=== PATIENT | female | born 1945 | race Caucasian/White ===

== ENCOUNTER 2017-09-03 15:41 | Emergency (ER) | payer MEDICARE ==
[~2017-09-03] VITALS: Ht 170.1 cm; Wt 90.7 kg
[2017-09-03 15:42] VITALS: BP 159/74
[2017-09-03 16:14] LABS: BASO # 0.1 10*3/uL (0.0-0.1); BASO % 0.8 % (0.0-1.0); EOS # 0.2 10*3/uL (0.0-0.4); EOS % 2.6 % (1.0-4.0); HEMOGLOBIN 16.7 g/dl (12.0-16.0); LYMPH % 25.7 % (27.0-41.0); MEAN CELL VOLUME 96.5 fl (81.0-99.0); MEAN CORPUSCULAR HGB 32.2 pg (27.0-31.0); MEAN CORPUSCULAR HGB CONC 33.4 g/dl (33.0-37.0); MEAN PLATELET VOLUME 9.4 fl (9.6-12.3); MONO # 0.5 10*3/uL (0.1-1.0); MONO % 6.6 % (3.0-9.0); NEUT % 63.8 % (47.0-73.0); PLATELET COUNT AUTOMATED 171 10*3/uL (130-400); RED BLOOD COUNT 5.18 10*6/uL (4.10-5.10); RED CELL DISTRI WIDTH 13.2 % (0-14.5); WHITE BLOOD COUNT 7.8 10*3/uL (4.8-10.8)
[2017-09-03 16:22] LABS: ACT PARTIAL THROMBO TIME 31.1 SECONDS (20.8-31.5); INTERNATIONAL NORM RATIO 1.1 (2.0-3.5)
[2017-09-03 16:23] LABS: BILIRUBIN NEGATIVE (NEGATIVE); BLOOD TRACE-LYSED (NEGATIVE); CLARITY CLEAR (CLEAR); COLOR YELLOW (YELLOW); GLUCOSE NEGATIVE (NEGATIVE); KETONE NEGATIVE (NEGATIVE); LEUKO ESTERASE NEGATIVE (NEGATIVE); NITRITE NEGATIVE (NEGATIVE); SPECIFIC GRAVITY <= 1.005 (1.005-1.030); UROBILINOGEN 0.2 E.U./dl (0.2-1.0)
[2017-09-03 16:32] LABS: BACTERIA 1+; EPITHELIAL CELLS 0-2; WBC 0-2 wbc/hpf (0-5)
[2017-09-03 16:35] LABS: ALBUMIN 3.8 gm/dl (3.1-4.5); ALKALINE PHOSPHATASE 77 U/L (45-117); BUN 15 mg/dl (7-24); CHLORIDE 105 mmol/L (98-107); CREATININE 0.68 mg/dL (0.55-1.02); LIPASE 250 U/L (73-393); POTASSIUM 4.2 mmol/L (3.5-5.1); SGOT/AST 14 IU/L (3-35); SGPT/ALT 19 U/L (12-78); SODIUM 139 mmol/L (136-145); TOTAL PROTEIN 7.6 gm/dL (6.4-8.2)
[2017-09-03] MEDS ORDERED: PRILOSEC20 M1 PO (17:36)
== END 2017-09-03 17:43 | disposition home or self-care (01) ==
LOC: ED 15:41
PROVIDERS: Emergency Medicine
DX: R10.13 Epigastric pain (principal); R10.12 Left upper quadrant pain; D68.51 Activated protein C resistance; I25.10 Atherosclerotic heart disease of native coronary artery without angina pectoris; I25.2 Old myocardial infarction; Z90.710 Acquired absence of both cervix and uterus; Z98.890 Other specified postprocedural states; Z88.8 Allergy status to other drugs, medicaments and biological substances

== ENCOUNTER 2019-02-09 14:29 | Inpatient (IN) | payer MEDICARE ==
[~2019-02-09] VITALS: Ht 167.6 cm; Wt 96.7 kg
--- NOTE | ~2019-02-09 | EKG ---
[place], [place] ELECTROCARDIOGRAM REPORT NAME: HANSA MUHAMMAD UNIT #: [id number] ROOM: 506 DOCTOR: EPIPHANY DRAFT REPORT BIRTHDATE: [birth year] [facility] Test Date: 2019-02-09 Test Time: 17:21:42 Pat Name: HANSA MUHAMMAD Department: Room: 506 2 Gender: F Shrinker: Oneal Barahona : 1945 Requested By: ADRI GUTIÉRREZ Order Number: [id number] Reading MD: Hermilo Hensley MD Measurements Intervals Jerome Rate: 56 P: 52 AL: 215 QRS: 31 QRSD: 94 T: 58 QT: 429 QTc: 415 Interpretive Statements Sinus rhythm Borderline prolonged AL interval Baseline wander in lead(s) II,III,aVF Electronically Signed On 02-10-2019 14:22:24 PDT by Hermilo Hensley MD CM:EKGRPT:ELECTROCARDIOGRAM REPORT 1721 1422 ADRI GUTIÉRREZ EPIPHANY DRAFT REPORT ADRI GUTIÉRREZ
[~2019-02-09 14:29] MED LIST: PRILOSEC20 M1 PO
[2019-02-09] MEDS ORDERED: LASIX40 MG PO (15:16)
[2019-02-09] MEDS ORDERED: XARE20MG PO (15:17)
[2019-02-09] MEDS ORDERED: GLUCOPHAGE1000 MG PO (15:18)
[2019-02-09] MEDS ORDERED: 'TENORMIN50 MG PO (15:18)
[2019-02-09] MEDS ORDERED: FOLGARD TABLET1 EACH PO (15:19)
[2019-02-09] MEDS ORDERED: LIPITOR40 MG PO (15:21)
[2019-02-09 15:45] LABS: BASO # 0.1 10*3/uL (0.0-0.1); BASO % 1.1 % (0.0-1.0); EOS # 0.2 10*3/uL (0.0-0.4); EOS % 2.7 % (1.0-4.0); HEMATOCRIT 48.2 % (37.0-47.0); LYMPH # 2.1 10*3/uL (1.3-4.4); LYMPH % 27.9 % (27.0-41.0); MEAN CORPUSCULAR HGB 33.2 pg (27.0-31.0); MEAN CORPUSCULAR HGB CONC 33.2 g/dl (33.0-37.0); MEAN PLATELET VOLUME 10.5 fl (9.6-12.3); MONO # 0.5 10*3/uL (0.1-1.0); MONO % 6.9 % (3.0-9.0); NEUT # 4.5 10*3/uL (2.3-7.9); PLATELET COUNT AUTOMATED 164 10*3/uL (130-400); RED BLOOD COUNT 4.82 10*6/uL (4.10-5.10); RED CELL DISTRI WIDTH 13.2 % (0-14.5); WHITE BLOOD COUNT 7.3 10*3/uL (4.8-10.8)
[2019-02-09 15:58] LABS: ALBUMIN 3.5 gm/dl (3.1-4.5); ALKALINE PHOSPHATASE 67 U/L (45-117); BUN 15 mg/dl (7-24); CHLORIDE 109 mmol/L (98-107); CREATININE 0.67 mg/dL (0.55-1.02); PHOSPHOROUS 2.6 mg/dL (2.5-4.9); POTASSIUM 4.6 mmol/L (3.5-5.1); SGOT/AST 13 IU/L (3-35); SGPT/ALT 20 U/L (12-78); SODIUM 142 mmol/L (136-145); TOTAL PROTEIN 7.1 gm/dL (6.4-8.2)
[2019-02-09 16:00] VITALS: BP 133/68; BP 172/94
[2019-02-09 16:08] LABS: TROPONIN I < 0.015 ng/ml (<0.045)
[2019-02-09 20:00] VITALS: BP 122/73
[2019-02-10] VITALS: BP 125/66
[2019-02-10] MEDS ORDERED: OMEPRAZOLE40 MG PO (00:14)
[2019-02-10] MEDS ORDERED: VITAMIN D32000 UNI1 PO (00:15)
[2019-02-10 06:59] LABS: BILIRUBIN NEGATIVE (NEGATIVE); BLOOD NEGATIVE (NEGATIVE); CLARITY CLEAR (CLEAR); COLOR YELLOW (YELLOW); GLUCOSE NEGATIVE (NEGATIVE); KETONE NEGATIVE (NEGATIVE); LEUKO ESTERASE NEGATIVE (NEGATIVE); NITRITE NEGATIVE (NEGATIVE); SPECIFIC GRAVITY 1.015 (1.005-1.030); UROBILINOGEN 0.2 E.U./dl (0.2-1.0)
[2019-02-10 07:17] LABS: BASO # 0.1 10*3/uL (0.0-0.1); BASO % 1.3 % (0.0-1.0); EOS # 0.3 10*3/uL (0.0-0.4); EOS % 4.2 % (1.0-4.0); HEMATOCRIT 50.3 % (37.0-47.0); HEMOGLOBIN 16.3 g/dl (12.0-16.0); LYMPH # 2.4 10*3/uL (1.3-4.4); LYMPH % 33.6 % (27.0-41.0); MEAN CELL VOLUME 100.8 fl (81.0-99.0); MEAN CORPUSCULAR HGB 32.7 pg (27.0-31.0); MEAN CORPUSCULAR HGB CONC 32.4 g/dl (33.0-37.0); MEAN PLATELET VOLUME 10.1 fl (9.6-12.3); MONO # 0.6 10*3/uL (0.1-1.0); NEUT # 3.7 10*3/uL (2.3-7.9); NEUT % 52.2 % (47.0-73.0); PLATELET COUNT AUTOMATED 166 10*3/uL (130-400); RED BLOOD COUNT 4.99 10*6/uL (4.10-5.10); RED CELL DISTRI WIDTH 13.5 % (0-14.5); WHITE BLOOD COUNT 7.1 10*3/uL (4.8-10.8)
[2019-02-10 07:35] LABS: ALBUMIN 3.5 gm/dl (3.1-4.5); ALKALINE PHOSPHATASE 63 U/L (45-117); BUN 19 mg/dl (7-24); CHLORIDE 107 mmol/L (98-107); CHOLESTEROL 151 mg/dL (<200); CREATININE 0.86 mg/dL (0.55-1.02); FREE T4 0.92 ng/dl (0.76-1.46); HDL CHOLESTEROL 33 mg/dl (40-60); LDL CHOLESTEROL 73 mg/dL (9-159); PHOSPHOROUS 3.3 mg/dL (2.5-4.9); POTASSIUM 3.9 mmol/L (3.5-5.1); SGOT/AST 14 IU/L (3-35); SGPT/ALT 22 U/L (12-78); SODIUM 141 mmol/L (136-145); TOTAL PROTEIN 7.2 gm/dL (6.4-8.2); TRIGLYCERIDES 226 mg/dl (<150); VLDL CHOLESTEROL 45 mg/dL (6-40)
[2019-02-10 08:00] VITALS: BP 126/65; BP 126/70
[2019-02-10 12:00] VITALS: BP 95/55
[2019-02-10 16:00] VITALS: BP 110/63
[2019-02-10 20:00] VITALS: BP 115/63
[2019-02-10 21:40] VITALS: BP 110/62
[2019-02-11] VITALS: BP 103/52
[2019-02-11 07:34] LABS: BASO # 0.1 10*3/uL (0.0-0.1); BASO % 1.1 % (0.0-1.0); EOS # 0.3 10*3/uL (0.0-0.4); EOS % 3.5 % (1.0-4.0); HEMATOCRIT 50.1 % (37.0-47.0); HEMOGLOBIN 16.3 g/dl (12.0-16.0); LYMPH % 37.3 % (27.0-41.0); MEAN CELL VOLUME 99.4 fl (81.0-99.0); MEAN CORPUSCULAR HGB 32.3 pg (27.0-31.0); MEAN CORPUSCULAR HGB CONC 32.5 g/dl (33.0-37.0); MEAN PLATELET VOLUME 10.5 fl (9.6-12.3); MONO # 0.6 10*3/uL (0.1-1.0); MONO % 7.4 % (3.0-9.0); NEUT % 50.1 % (47.0-73.0); PLATELET COUNT AUTOMATED 176 10*3/uL (130-400); RED BLOOD COUNT 5.04 10*6/uL (4.10-5.10); RED CELL DISTRI WIDTH 13.2 % (0-14.5)
[2019-02-11 08:07] LABS: BUN 18 mg/dl (7-24); CHLORIDE 108 mmol/L (98-107); CREATININE 0.84 mg/dL (0.55-1.02); SODIUM 141 mmol/L (136-145)
[2019-02-11 08:30] VITALS: BP 106/68
[2019-02-11 09:44] VITALS: BP 110/64
[2019-02-11 12:00] VITALS: BP 117/73
[2019-02-11 16:00] VITALS: BP 108/60
[2019-02-11 20:00] VITALS: BP 106/50
[2019-02-12] VITALS: BP 116/65
[2019-02-12 12:00] VITALS: BP 106/45
[2019-02-12] MEDS ORDERED: KEFLEX500 M1 PO (13:40)
== END 2019-02-12 15:55 | disposition home or self-care (01) | DRG 603 ==
LOC: 5E 14:29
PROVIDERS: Internal Medicine; ADMIT Internal Medicine
DX: L03.115 Cellulitis of right lower limb (principal); D68.51 Activated protein C resistance; I25.10 Atherosclerotic heart disease of native coronary artery without angina pectoris; I11.0 Hypertensive heart disease with heart failure; M79.2 Neuralgia and neuritis, unspecified; I50.9 Heart failure, unspecified; D75.89 Other specified diseases of blood and blood-forming organs; F17.210 Nicotine dependence, cigarettes, uncomplicated; K21.9 Gastro-esophageal reflux disease without esophagitis; M79.7 Fibromyalgia; E11.628 Type 2 diabetes mellitus with other skin complications; I25.2 Old myocardial infarction; Z88.8 Allergy status to other drugs, medicaments and biological substances; Z71.6 Tobacco abuse counseling; Z79.4 Long term (current) use of insulin; Z79.899 Other long term (current) drug therapy

== ENCOUNTER 2019-10-19 20:53 | Emergency (ER) | payer MEDICARE ==
[~2019-10-19] VITALS: Ht 167.6 cm; Wt 99.8 kg
[~2019-10-19 20:53] MED LIST changes: +'TENORMIN50 MG PO; +FOLGARD TABLET1 EACH PO; +GLUCOPHAGE1000 MG PO; +KEFLEX500 M1 PO; +LASIX40 MG PO; +LIPITOR40 MG PO; +OMEPRAZOLE40 MG PO; +VITAMIN D32000 UNI1 PO; +XARE20MG PO
[2019-10-19 21:00] VITALS: BP 146/73
== END 2019-10-19 22:54 | disposition home or self-care (01) ==
LOC: ED 20:53
DX: M10.9 Gout, unspecified (principal); I25.10 Atherosclerotic heart disease of native coronary artery without angina pectoris; I11.0 Hypertensive heart disease with heart failure; I50.9 Heart failure, unspecified; K21.9 Gastro-esophageal reflux disease without esophagitis; G43.909 Migraine, unspecified, not intractable, without status migrainosus; Z90.49 Acquired absence of other specified parts of digestive tract; Z88.8 Allergy status to other drugs, medicaments and biological substances; Z79.899 Other long term (current) drug therapy

== ENCOUNTER → 2020-02-21 | Outpatient (CLI) | payer MEDICARE | END | disposition home or self-care (01) | LOC: CARD 12:59 → US 14:30 | PROVIDERS: ATTEND Internal Medicine | DX: I82.431 Acute embolism and thrombosis of right popliteal vein (principal); M71.21 Synovial cyst of popliteal space [Baker], right knee; I51.7 Cardiomegaly; I87.2 Venous insufficiency (chronic) (peripheral) ==

== ENCOUNTER → 2022-03-23 | Outpatient (CLI) | payer MEDICARE | END | disposition home or self-care (01) | LOC: WOUNDCARE 00:48 | PROVIDERS: ATTEND Nurse Practitioner Family | DX: E11.622 Type 2 diabetes mellitus with other skin ulcer (principal); L97.812 Non-pressure chronic ulcer of other part of right lower leg with fat layer exposed; L97.822 Non-pressure chronic ulcer of other part of left lower leg with fat layer exposed; S81.801D Unspecified open wound, right lower leg, subsequent encounter; I89.0 Lymphedema, not elsewhere classified; I10 Essential (primary) hypertension; M06.9 Rheumatoid arthritis, unspecified; D68.2 Hereditary deficiency of other clotting factors; Z86.718 Personal history of other venous thrombosis and embolism; F17.200 Nicotine dependence, unspecified, uncomplicated; Z90.710 Acquired absence of both cervix and uterus; Z90.49 Acquired absence of other specified parts of digestive tract; Z95.818 Presence of other cardiac implants and grafts; X58.XXXD Exposure to other specified factors, subsequent encounter ==

== ENCOUNTER → 2022-03-26 | Outpatient (CLI) | payer MEDICARE | LOC: WOUNDCARE 01:36 | PROVIDERS: ATTEND Surgery Vascular Surgery | DX: Z53.21 Procedure and treatment not carried out due to patient leaving prior to being seen by health care provider (principal) ==

== ENCOUNTER 2024-12-21 13:03 | Emergency (ER) | payer MEDICARE ==
[~2024-12-21] VITALS: Ht 170.1 cm; Wt 108.9 kg
[~2024-12-21 13:03] MED LIST changes: +ALPRAZOLAM0.5 M3 PO; +AMMONIUM LACTA227 GM T; +ATENOLOL50 M1 PO; +HYDROCODONE-AC1 EAC2 PO; +LORAZEPAM1 MG PO; +MUCUS RELIEF E600 MG PO; +NEURONTIN300 MG PO; +POTASSIUM CHLO10 ME4 PO; +REMEDY CALAZIME4 GM T; +VIBRA-TAB100 MG PO; +XYLOCAINE 5%35.44 GM T
[2024-12-21] MEDS ORDERED: Ondansetron Hydrochloride 4 MG/2 ML VIAL IV ONE (13:25)
[2024-12-21 13:46] LABS: BASO # 0.1 10*3/uL (0.0-0.1); BASO % 1.1 % (0.0-1.0); EOS # 0.2 10*3/uL (0.0-0.4); EOS % 3.2 % (1.0-4.0); MEAN CELL VOLUME 95.3 fl (81.0-99.0); MEAN CORPUSCULAR HGB 29.7 pg (27.0-31.0); MEAN PLATELET VOLUME 9.6 fl (9.6-12.3); MONO # 0.4 10*3/uL (0.1-1.0); MONO % 7.5 % (3.0-9.0); NEUT # 3.4 10*3/uL (2.3-7.9); NEUT % 64.6 % (47.0-73.0); NUCLEATED RED BLOOD CELL 0.0 % (0.0-0.0); NUCLEATED RED BLOOD CELL 0.0 10*3/uL (0.0-0.0); PLATELET COUNT AUTOMATED 166 10*3/uL (130-400); RED CELL DISTRI WIDTH 14.4 % (0-14.5)
[2024-12-21 14:11] LABS: BUN 17.0 mg/dl (9-23)
[2024-12-21] MEDS ORDERED: ceFAZolin sodium/sodium chlor 20 ML IV ONE (14:30)
[2024-12-21] MEDS ORDERED: CEPHALEXIN500 M1 PO (14:37)
[2024-12-21] MEDS ORDERED: VIBRAMYCIN100 MG PO (14:37)
[2024-12-21 15:02] VITALS: BP 156/81
== END 2024-12-21 14:46 | disposition home or self-care (01) ==
LOC: ED 13:03
PROVIDERS: Nurse Practitioner Family
DX: I89.0 Lymphedema, not elsewhere classified (principal); L03.116 Cellulitis of left lower limb; L03.115 Cellulitis of right lower limb; F41.9 Anxiety disorder, unspecified; I50.9 Heart failure, unspecified; M06.9 Rheumatoid arthritis, unspecified; G62.9 Polyneuropathy, unspecified; Z88.8 Allergy status to other drugs, medicaments and biological substances; Z79.899 Other long term (current) drug therapy; Z98.890 Other specified postprocedural states; Z90.49 Acquired absence of other specified parts of digestive tract